=== PATIENT | male | born 1950 | race Caucasian/White ===

== ENCOUNTER → 2016-11-17 | Day surgery (SDC) | payer MEDICARE ==
[~2016-11-17] VITALS: Ht 176.5 cm; Wt 96.2 kg
[~2016-11-17] MED LIST: 0.9% Sodium Chloride 1,000 ML IV SCH; ASPI-973 PO; DESO15CR25 TOP; KTC2C15 TP; OMEP20CA11 PO; Sodium Chloride LOK Flush 10 mL Syringe IV PRN; TYLENOL PO; VIT1CAPS10 PO; fentaNYL-PF 50 mCg/mL 2 mL Inj IVPUSH PRN
[2016-11-17 12:53] VITALS: BP 147/85; RESP 17; O2SAT 96
[2016-11-17 14:18] VITALS: BP 142/78; PULSE 61; RESP 12; O2SAT 97
[2016-11-17 14:29] VITALS: BP 122/81; PULSE 71; RESP 12; O2SAT 98
--- NOTE | 2016-11-17 14:49 | ENDO ---
[address] [address] ENDOSCOPY PROCEDURE PATIENT: CARLENE SÁNCHEZ : 1950 MR#: [id number] ADMIT: 11/17/2016 JOB ID: [id number] DATE: 11/17/2016 PRIMARY PROVIDER: Armand Schmitt M.D. PROCEDURE: Esophagogastroduodenoscopy with biopsies and a colonoscopy with hot snare polypectomy, cold snare polypectomy, cold forceps polypectomy. INDICATIONS: A 66-year-old male with Banks's and colon polyps returning for surveillance. EQUIPMENT: Standard upper endoscope and a PCF H 180 AL colonoscope. SEDATION: 1. 7 mg Versed. 2. 175 mcg fentanyl. COMPLICATIONS: None identified. BOWEL PREPARATION: Fair, adequate examination. PROCEDURAL INFORMATION: After the risks and benefits were explained, written and verbal informed consent was obtained. The patient was brought into the endoscopy suite and placed into the left lateral decubitus position. Sedation was achieved using the above-stated medications with the addition of oxygen via nasal cannula. The scope was introduced into the mouth through the bite block and advanced under direct visualization to the level of the second portion of the duodenum. The scope was slowly withdrawn to carefully examine the mucosa for any defects or lesions. Retroflexed views were accomplished in the stomach. The stomach was decompressed. Scope removed from the patient who tolerated the procedure well. The patient was turned around and digital rectal examination accomplished. Mild internal hemorrhoids with hypertrophied anal papillae noted. The scope was introduced into the rectum and advanced to the cecum as identified by the appendiceal orifice and ileocecal valve. The scope was slowly withdrawn to carefully examine the mucosa for any defects or lesions. Retroflexed views were accomplished in the rectum. The colon was decompressed. The scope removed from the patient who tolerated the procedure well. FINDINGS: 1. Duodenum: No pathology identified from the bulb through the second portion. 2. Stomach: No significant mucosal pathology appreciated. No ulcers, mass lesions or outlet obstruction. Retroflexed views of the LES were unremarkable. 3. Esophagus: The squamocolumnar junction correlated with the top of the gastric folds. The GEJ was at about 40 cm from the incisors. The patient had what appeared to be C 0.5 M 1.5 Bakns's. A total of approximately five biopsies were taken from this section. The remainder of the esophagus appeared unremarkable. 4. Colon: There were five small polyps seen and removed by way of hot snare, cold snare and cold forceps throughout (five came by way of forceps, one by way of hot snare and one by way of cold snare). Some diverticulosis was seen in the left colon. Retroflexed views disclosed moderate internal hemorrhoids with hypertrophied anal papillae. ENDOSCOPIC DIAGNOSES: 1. 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 2. Hiatal hernia. 3. Colon polyps. 4. Diverticulosis. 5. Hemorrhoids. RECOMMENDATIONS: 1. Await histopathology. 2. Continue anti-reflux therapy. 3. Repeat EGD in three years' time as long as there are no dysplastic features at histology. 4. Repeat colonoscopy three years' time.
--- NOTE | 2016-11-22 11:22 | PATH ---
SURGICAL PATHOLOGY Attending Physician:Darinel Peter CASE STATUS: Signed Out PATIENT NAME: CARLENE SÁNCHEZ PID: [id number] : 1950 DATE COLLECTED:11/17/2016 00:00 SPECIMEN: 1: Esophagus, Biopsy 2: Colon, Polyp CLINICAL HISTORY: 1). DISTAL ESOPHAGUS BIOPSY 2). COLON POLYP FINAL DIAGNOSIS: 1. Distal Esophagus, Biopsy: Squamocolumnar junctional mucosa with specialized intestinal metaplasia, consistent with Banks's esophagus. 2. Colon Polyp, Biopsy: Fragmented tubular adenoma. ICD10: K22.7 D12.6 GROSS DESCRIPTION: The specimen is received in two formalin filled containers labeled with the patient's name. 1). The specimen is labeled "distal esoph" and consists of 4 portions of tissue which aggregate to 0.3 x 0.3 x 0.2 CM. The specimen is entirely submitted in cassette 1A. 2). The specimen is labeled "colon polyp" and consists of multiple portions of tissue which aggregate to 0.4 x 0.4 x 0.3 CM. The specimen is entirely submitted in cassette 2A. 11/18/2016DC ICD-9 CODES: CPT CODES: 1: 13201 2: 83715 Electronically Signed Out Salvador Huitron MD, Ph.D. [facility] Pathology [facility] [address], [place] [address] Technical component performed at [facility], [facility] [address], [place], [address]
== END | disposition home or self-care (01) ==
LOC: END 02:27
PROVIDERS: ATTEND Internal Medicine Gastroenterology
DX: Z12.11 Encounter for screening for malignant neoplasm of colon (principal); D12.6 Benign neoplasm of colon, unspecified; K57.30 Diverticulosis of large intestine without perforation or abscess without bleeding; K64.8 Other hemorrhoids; K22.70 Barrett's esophagus without dysplasia; K44.9 Diaphragmatic hernia without obstruction or gangrene; L71.9 Rosacea, unspecified; Z86.010 Personal history of colon polyps; Z79.82 Long term (current) use of aspirin; Z79.899 Other long term (current) drug therapy
CPT/HCPCS: 43239; 45380; 45385; 88305; 99153; G0500; J2250; J3010; J7030